=== PATIENT | male | born 1980 | race Caucasian/White ===

== ENCOUNTER 2019-12-07 11:02 | Emergency (ER) | payer OTHER, SELFPAY ==
--- NOTE | 2019-12-07 11:06 | PC.NURSE ---
Patient's guardian asked this nurse Is it going to be over an hour? This RN told guardian, she was unsure of wait time due at this time. Guardian stated I'll take her to [place] where they will get her right in. The take priority over children instead of people with broken fucking fingers. Patient left with guardian.
[2019-12-07 11:18] VITALS: BP 141/93; PULSE 84; RESP 18; TEMP 36.5; O2SAT 100
--- NOTE | 2019-12-07 11:52 | ED.GENADULT ---
HPI - General Adult General Chief complaint: Dental/Oral Stated complaint: dental pain Time Seen by Provider: 12/07/19 11:39 Source: patient Mode of arrival: ambulatory Limitations: no limitations History of Present Illness HPI narrative: Patient is a 39-year-old male who presents to emergency department for evaluation of left lower dental pain for the last several days with history of decay has follow-up with dentistry in the next week patient notes mild aching pain worse with eating denies other complaints or URI symptoms and is otherwise resting comfortably in the room in no distress upon arrival Related Data Home Medications Medication Instructions Recorded Confirmed citalopram mg 12/07/19 insulin lispro [Admelog U-100 12/07/19 Insulin lispro] lamotrigine 50 mg 12/07/19 Allergies Allergy/AdvReac Type Severity Reaction Status Date / Time Benzodiazepines Allergy Unknown Nausea Verified 12/07/19 11:35 tramadol Allergy Unknown Hypertensio Verified 12/07/19 11:35 n Review of Systems Review of Systems: Narrative: CONSTITUTIONAL: Denies fever, chills, or sweats. EYES: Denies redness, or discharge. ENT: Denies rhinorrhea, congestion, sore throat RESPIRATORY: Denies cough or dyspnea. GASTROINTESTINAL: Denies nausea, vomiting, or diarrhea. SKIN: Denies rash or itching. MUSCULOSKELETAL: Denies back pain, joint pain, or myalgia. NEUROLOGIC: Denies headache PMFSH Past Medical History Medical History Insulin dependent diabetes mellitus Surgical History Surgical History Hx of cholecystectomy Family History Family History (Updated 01/13/19 @ 13:30 by DOCTOR UNKNOWN) Sibling Family history of rheumatoid arthritis Patient's sister is in good health Father Patient's father is in good health Grandparent Cerebrovascular accident Other Family history of throat cancer Social History Social History Smoking status: Heavy tobacco smoker Alcohol intake: never Gender identity (if verbalized by the patient): Male Exam Narrative: Exam Narrative: GENERAL: Well-appearing, well-nourished, and in no acute distress. HEAD: Normocephalic, atraumatic. EYES: PERRLA and EOMI. ENT: Nares clear, no rhinorrhea or epistaxis. Mucous membranes moist. Oropharynx without tonsillar hypertrophy exudate or other lesions. Dental decay in the left lower posterior molars no erythema or fluctuance noted. Uvula midline no trismus or drooling NECK: Supple. No adenopathy or masses. CHEST: Clear to auscultation. No respiratory distress. No wheezes rales or rhonchi HEART: Regular rate and rhythm. No murmur heard. EXTREMITIES: Normal range of motion. No edema. SKIN: Warm, dry, no rash. NEURO: No focal deficits. Alert and oriented x3. Cranial nerves II through XII grossly intact PSYCH: Normal mood and affect. Course Vital Signs Vital signs: Vital Signs Temperature 97.7 F 12/07/19 11:18 Pulse Rate 84 12/07/19 11:18 Respiratory Rate 18 12/07/19 11:18 Blood Pressure 141/93 H 12/07/19 11:18 Pulse Oximetry 100 12/07/19 11:18 Temperature 97.7 F 12/07/19 11:18 Pulse Rate 84 12/07/19 11:18 Respiratory Rate 18 12/07/19 11:18 Blood Pressure 141/93 H 12/07/19 11:18 Pulse Oximetry 100 12/07/19 11:18 Medical Decision Making MDM Narrative Medical decision making narrative: Patients pain and complaint coupled with physical findings are consistent with dentalgia. There are no focal signs of space occupying lesions that are compromising to the airway. The floor of the mouth is soft with no signs of Ludwigs Angina. Patient is without trismus or drooling and able to swallow secretions. Patient is felt appropriate for discharge home with dental follow up. Vital Signs Vital Signs: Vital Signs Temperature 97.7 F
== END 2019-12-07 12:25 | disposition home or self-care (01) ==
PROVIDERS: Emergency Provider Emergency Medicine; PCP Internal Medicine
DX: K02.9 Dental caries, unspecified (principal); E11.9 Type 2 diabetes mellitus without complications; F17.200 Nicotine dependence, unspecified, uncomplicated
CPT/HCPCS: 99283